=== PATIENT | female | born 1975 | race Caucasian/White ===

== ENCOUNTER 2024-01-05 19:05 | Emergency (ER) | payer BC ==
[~2024-01-05] VITALS: Ht 165.1 cm; Wt 79.0 kg
[2024-01-05] VITALS (10 sets, daily range): BP systolic 86–171; BP diastolic 60–110
[~2024-01-05 19:05] MED LIST: LISINOPRIL10 MG PO
[2024-01-05] MEDS ORDERED: ACETAMINOPHEN 500 MG TAB PO ONE (19:55)
[2024-01-05] MEDS ORDERED: LISINOPRIL 10 MG/TAB PO ONE (19:55)
[2024-01-05] MEDS ORDERED: cloNIDine HCL 0.1 MG/TAB PO ONE (19:55)
[2024-01-05] MEDS ORDERED: IBUPROFEN 800 MG/TAB PO ONE (19:55)
[2024-01-05] MEDS ORDERED: LISINOPRIL10 MG PO (22:51)
== END 2024-01-05 23:07 | disposition home or self-care (01) | DRG 125 ==
LOC: ED 19:05
DX: S00.12XA Contusion of left eyelid and periocular area, initial encounter (principal); I10 Essential (primary) hypertension; W01.0XXA Fall on same level from slipping, tripping and stumbling without subsequent striking against object, initial encounter; Y92.009 Unspecified place in unspecified non-institutional (private) residence as the place of occurrence of the external cause